=== PATIENT | male | born 1990 | race Caucasian/White ===

== ENCOUNTER 2023-05-12 10:55 | Inpatient (IN) ==
[2023-05-12] MEDS ORDERED: ONDANSETRON INJ 2 MG/ML 2 ML VIAL IV STA ×2 (11:42→11:43)
[2023-05-12] MEDS ORDERED: SODIUM CHLORIDE 0.9% 1000ML 2,000 ML IV ONE (11:43)
[2023-05-12] MEDS ORDERED: ONDANSETRON INJ 2 MG/ML 2 ML VIAL ONE (11:44)
[2023-05-12] MEDS ORDERED: SODIUM CHLORIDE 0.9% 1000ML 2,000 ML IV SCH (11:45)
--- NOTE | 2023-05-12 11:45 | Emergency Department Note ---
Impression & Plan DKA, type 1, Type 1 diabetes mellitus, Abdominal pain ED Provider Note NAME: ESTEPHANIA CURIEL AGE: 32 SEX: M : 1990 ARRIVES VIA: Walk-In INFORMANT: Patient ED PROVIDER(S): Raffaele Mack DO CHIEF COMPLAINT: N/V HPI: Patient is a 32-year-old male who is a type I diabetic who presents to the ER for nausea and vomiting which started this past Friday. Has been getting gradually worse. He notes that after vomiting he gets severe headaches and severe belly pain. He has only checked his sugar once since then and that was on Friday and it was about 300. He has been intermittently taking his insulin. Denies any dysuria, urgency, or frequency. No fevers. No other exacerbating or remitting factors. No neck stiffness. No trauma. PAST MEDICAL HISTORY:See Below PAST SURGICAL HISTORY:See Below FAMILY HISTORY:See Below SOCIAL HISTORY:See Below HOME MEDICATIONS:See Below ALLERGIES:See Below VITALS:See Below PHYSICAL EXAMINATION: GENERAL: Sitting up in bed, alert, well appearing, well nourished, no distress, non-toxic EYE EXAM: normal conjunctiva. OROPHARYNX: no exudate, no erythema, lips, buccal mucosa, and tongue normal and mucous membranes are moist NECK: supple, no nuchal rigidity, no adenopathy, non-tender LUNGS: Clear to auscultation. Normal chest wall mechanics HEART: no murmurs, S1 normal and S2 normal ABDOMEN: abdomen soft, non-tender, normo-active bowel sounds, no masses, no rebound or guarding. BACK: Back is symmetrical on inspection and there is no deformity, no midline tenderness, no CVA tenderness. SKIN: no rashes and no bruising UPPER EXTREMITIES: upper extremities are grossly normal. LOWER EXTREMITIES: No pitting edema. NEURO EXAM: Normal sensorium, cranial nerves II-XII intact, normal speech, no weakness of arms, no weakness of legs. No drift. Finger to nose intact. Gross sensation intact. MEDICAL DECISION MAKING: Patient is a 32-year-old type I diabetic presents ER for above-stated complaint. IV was established blood work was obtained. External records reviewed briefly from [employer]. Labs show no significant leukocytosis or anemia. VBG with a pH of 7.25. BMP with a gap and a CO2 of 14. Glucose was elevated at nearly 400. LFTs bilirubin and lipase was unremarkable. UA was clean. COVID-negative . CT head and abdomen pelvis was unremarkable. Patient was given 4 L of IV fluids as well as an insulin drip and bolus. Patient was discussed with the hospitalist admitted for further work-up. Triage Nursing notes reviewed. Limited review of prior medical records performed Vital Signs: reviewed and remarkable for no significant abnormalities Differential diagnosis: Differential diagnoses includes but is not limited to gastritis, peptic ulcer disease, GERD, gallbladder disease, pancreatitis, small bowel obstruction, appendicitis, diverticulitis, hernia, urinary tract infection, torsion, perforation, trauma, infectious. ER treatment provided: See below Diagnostics interpreted by me include EKG and cardiac monitoring as listed below: -Cardiac Monitoring: An order was placed for continuous cardiac monitoring. The monitor shows a rate of 115 with sinus rhythm. -ECG: none -Laboratory studies:Interpreted by me as stated above in MDM and shown below. Imaging studies: Xrays: As interpreted by me:none CTs show: CT of the head and abdomen pelvis showed no acute pathology per radiology CT of the head per my read showed no obvious large bleed Consultation(s): As described in MDM Procedures:none Critical Care: I have personally spent 32 minutes of critical care time in the direct management of this patient. This includes bedside care, interpretation of diagnostic studies, and testing, discussion with consultants, patient, and family members, and other required patient management activities. This 32 minutes is in excess of all separately billable procedures. Past Med/Surg History Medical History Dyslipidemia Subclinical hypothyroidism Type 1 diabetes mellitus Surgical History No pertinent past surgical history Family History Mother Diabetes Grandmother (Maternal) Diabetes Hypertension Grandfather (Maternal) Hypertension Social History (Updated 05/12/23 @ 14:46 by Sarai Cabezas PA-C) Smoking Status: Never smoker Hx Alcohol Use: Yes Alcohol type: beer Alcohol type Comment: weekends (10-12 beers), rare on weekdays Hx Substance Use: No Preferred Language: Pashto Dealership Manager Required: No Beliefs That Will Affect Care: None Current Living Situation: Alone current occupational status: employed current occupation: civil engineering technician Feels Safe at Home: Yes Safety Concerns: Feels Safe At This Time Assistive Devices: None Allergies Allergies Allergy/AdvReac Type Severity Reaction Status Date / Time Penicillins Allergy Mild RASH A Verified 05/12/23 14:50 CHILD. Home Meds Home Medications Medication Instructions Recorded Confirmed insulin glargine 100 unit/mL 30 unit subcut BID 04/22/20 05/12/23 subcutaneous solution (Lantus U-100 Insulin) levothyroxine 25 mcg tablet 25 mcg PO DAILY 04/22/20 05/12/23 insulin aspart U-100 100 unit/mL 0 sliding scale dose subcut TIDM 05/12/23 05/12/23 (3 mL) subcutaneous pen (Novolog FlexPen U-100 Insulin aspart) ondansetron HCl 4 mg tablet 4 mg PO Q8H PRN Nausea 05/12/23 05/12/23 sertraline 50 mg tablet 50 mg PO DAILY 05/12/23 05/12/23 tadalafil 5 mg tablet 5 mg PO DIRECTED PRN Erectile 05/12/23 05/12/23 Dysfunction Results & Data (ED) Vital Signs Vital Signs - 24 hr 05/12/23 11:07 05/12/23 12:09 05/12/23 12:17 Temperature 36.6 C Temperature Source Temporal Artery Scan Pulse Rate 110 H 108 H Pulse Rate [Radial] 112 H Pulse Rhythm [Radial] Regular Respiratory Rate 20 15 Respiratory Effort / Characteristics Non-Labored Respiratory Depth Normal Blood Pressure 139/86 Blood Pressure [Left Arm] 156/89 H Blood Pressure Mean 103 Blood Pressure Mean [Left Arm] 111 Pulse Oximetry 97 97 Oxygen Delivery Method Room Air Room Air Sepsis Recent Fever Within 48 Hours No Sepsis New/Unexplained Change in Mental Status N/A Sepsis Action Taken by Nursing No Action Required Laboratory Data 05/12/23 11:41 05/12/23 16:19 Lab Results 05/12/23 05/12/23 05/12/23 Range/Units 11:38 11:41 11:41 WBC 7.26 (4.8-10.8) K/ul RBC 5.07 (4.70-6.10) M/uL Hgb 15.5 (14.0-18.0) g/dl POC Hgb (14.0-18.0) g/dl Hct 45.2 (42.0-52.0) % POC Hct (42-52) % MCV 89.2 (80.0-100.0) fL MCH 30.6 (25.0-34.0) pg MCHC 34.3 (32.0-36.0) g/dL RDW Std Deviation 39.1 (36.4-46.3) fL RDW Coeff of Tawny 11.9 (11.5-14.5) % Plt Count 355 (130-400) K/uL MPV 10.6 (9.4-12.4) fL Immature Gran % (Auto) 0.3 % Neut % (Auto) 78.3 % Lymph % (Auto) 15.0 % Licking % (Auto) 5.4 % Eos % (Auto) 0.4 % Baso % (Auto) 0.6 % Neut # (Auto) 5.69 (1.40-6.50) K/uL Lymph # (Auto) 1.09 L (1.2-3.4) K/uL Licking # (Auto) 0.39 (0.11-0.59) K/uL Eos # (Auto) 0.03 (0-0.50) K/uL Baso # (Auto) 0.04 (0-0.2) K/uL Immature Gran # (Auto) 0.02 (0.01-0.20) K/uL VBG pH (7.36-7.41) VBG pCO2 (38-50) mmHg VBG pO2 mmHg VBG HCO3 mmol/L VBG O2 Saturation % VBG Base Excess mEq/L POC Sodium (135-144) mmol/L Sodium 131 L (136-145) mmol/L POC Potassium (3.3-5.0) mmol/L Potassium TNP POC Chloride (101-112) mmol/L Chloride 93 L (98-107) mmol/L Carbon Dioxide 14 L (21-32) mmol/L POC Total CO2 (24-31) mmol/L Anion Gap 24 H (3-11) POC Anion Gap (16-25) mmol/L POC BUN (7-18) mg/dl BUN 15 (6-23) mg/dl Creatinine 1.03 (0.6-1.4) mg/dl POC Creatinine (0.6-1.3) mg/dl Est Cr Clr Drug Dosing 131.1 ml/min Est GFR ( Amer) 112.5 ml/min Est GFR (Non-Af Amer) 97.0 ml/min BUN/Creatinine Ratio 14.6 (10-20) Glucose 379 H* (70-99(Fasting)) mg/dl POC Glucose 391 H* (70-99) mg/dl POC Glucose (other) (70-99) mg/dl Calcium 9.3 (8.6-10.3) mg/dl POC Ioniz Calcium Bruce (1.12-1.32) mmol/l Total Bilirubin 0.5 (0.2-1.0) mg/dl AST TNP ALT 26 (7-52) U/L Alkaline Phosphatase 60 (34-104) U/L Total Creatine Kinase (30-223) U/L Total Protein 8.0 (6.0-8.3) gm/dl Albumin 4.3 (3.4-5.0) gm/dl Globulin 3.7 (2.5-4.0) gm/dl Albumin/Globulin Ratio 1.2 (0.9-2) Lipase 19 (11-82) U/L 05/12/23 05/12/23 05/12/23 Range/Units 12:27 13:25 13:50 WBC (4.8-10.8) K/ul RBC (4.70-6.10) M/uL Hgb (14.0-18.0) g/dl POC Hgb 16.3 (14.0-18.0) g/dl Hct (42.0-52.0) % POC Hct 48 (42-52) % MCV (80.0-100.0) fL MCH (25.0-34.0) pg MCHC (32.0-36.0) g/dL RDW Std Deviation (36.4-46.3) fL RDW Coeff of Tawny (11.5-14.5) % Plt Count (130-400) K/uL MPV (9.4-12.4) fL Immature Gran % (Auto) % Neut % (Auto) % Lymph % (Auto) % Licking % (Auto) % Eos % (Auto) % Baso % (Auto) % Neut # (Auto) (1.40-6.50) K/uL Lymph # (Auto) (1.2-3.4) K/uL Licking # (Auto) (0.11-0.59) K/uL Eos # (Auto) (0-0.50) K/uL Baso # (Auto) (0-0.2) K/uL Immature Gran # (Auto) (0.01-0.20) K/uL VBG pH 7.25 L (7.36-7.41) VBG pCO2 34 L (38-50) mmHg VBG pO2 52 mmHg VBG HCO3 15 mmol/L VBG O2 Saturation 81.3 % VBG Base Excess -11.3 mEq/L POC Sodium 131 L (135-144) mmol/L Sodium (136-145) mmol/L POC Potassium 6.1 H* (3.3-5.0) mmol/L Potassium 4.6 POC Chloride 101 (101-112) mmol/L Chloride (98-107) mmol/L Carbon Dioxide (21-32) mmol/L POC Total CO2 14 L (24-31) mmol/L Anion Gap (3-11) POC Anion Gap 23.0 (16-25) mmol/L POC BUN 18 (7-18) mg/dl BUN (6-23) mg/dl Creatinine (0.6-1.4) mg/dl POC Creatinine 0.8 (0.6-1.3) mg/dl Est Cr Clr Drug Dosing ml/min Est GFR ( Amer) ml/min Est GFR (Non-Af Amer) ml/min BUN/Creatinine Ratio (10-20) Glucose (70-99(Fasting)) mg/dl POC Glucose (70-99) mg/dl POC Glucose (other) 342 H (70-99) mg/dl Calcium (8.6-10.3) mg/dl POC Ioniz Calcium Bruce 1.02 L (1.12-1.32) mmol/l Total Bilirubin (0.2-1.0) mg/dl AST ALT (7-52) U/L Alkaline Phosphatase (34-104) U/L Total Creatine Kinase 118 (30-223) U/L Total Protein (6.0-8.3) gm/dl Albumin (3.4-5.0) gm/dl Globulin (2.5-4.0) gm/dl Albumin/Globulin Ratio (0.9-2) Lipase (11-82) U/L 05/12/23 Range/Units 14:38 WBC (4.8-10.8) K/ul RBC (4.70-6.10) M/uL Hgb (14.0-18.0) g/dl POC Hgb (14.0-18.0) g/dl Hct (42.0-52.0) % POC Hct (42-52) % MCV (80.0-100.0) fL MCH (25.0-34.0) pg MCHC (32.0-36.0) g/dL RDW Std Deviation (36.4-46.3) fL RDW Coeff of Tawny (11.5-14.5) % Plt Count (130-400) K/uL MPV (9.4-12.4) fL Immature Gran % (Auto) % Neut % (Auto) % Lymph % (Auto) % [place] % (Auto) % Eos % (Auto) % Baso % (Auto) % Neut # (Auto) (1.40-6.50) K/uL Lymph # (Auto) (1.2-3.4) K/uL [place] # (Auto) (0.11-0.59) K/uL Eos # (Auto) (0-0.50) K/uL Baso # (Auto) (0-0.2) K/uL Immature Gran # (Auto) (0.01-0.20) K/uL VBG pH (7.36-7.41) VBG pCO2 (38-50) mmHg VBG pO2 mmHg VBG HCO3 mmol/L VBG O2 Saturation % VBG Base Excess mEq/L POC Sodium (135-144) mmol/L Sodium (136-145) mmol/L POC Potassium (3.3-5.0) mmol/L Potassium POC Chloride (101-112) mmol/L Chloride (98-107) mmol/L Carbon Dioxide (21-32) mmol/L POC Total CO2 (24-31) mmol/L Anion Gap (3-11) POC Anion Gap (16-25) mmol/L POC BUN (7-18) mg/dl BUN (6-23) mg/dl Creatinine (0.6-1.4) mg/dl POC Creatinine (0.6-1.3) mg/dl Est Cr Clr Drug Dosing ml/min Est GFR ( Amer) ml/min Est GFR (Non-Af Amer) ml/min BUN/Creatinine Ratio (10-20) Glucose (70-99(Fasting)) mg/dl POC Glucose 226 H (70-99) mg/dl POC Glucose (other) (70-99) mg/dl Calcium (8.6-10.3) mg/dl POC Ioniz Calcium Bruce (1.12-1.32) mmol/l Total Bilirubin (0.2-1.0) mg/dl AST ALT (7-52) U/L Alkaline Phosphatase (34-104) U/L Total Creatine Kinase (30-223) U/L Total Protein (6.0-8.3) gm/dl Albumin (3.4-5.0) gm/dl Globulin (2.5-4.0) gm/dl Albumin/Globulin Ratio (0.9-2) Lipase (11-82) U/L Administered Medications Insulin Human Regular 250 (units/ Sodium Chloride) 250 mls @ 10 mls/hr IV .Q24H ADELAIDA; Protocol Stop: 06/11/23 12:59 Last Titration: 05/12/23 17:04 Dose: 10 units/hr, 10 mls/hr Documented By: VANDANA Co-signed By: MARCOS Titration: 05/12/23 15:45 Dose: 10 units/hr, 10 mls/hr Documented By: MURTAZA Co-signed By: STEFANIE Titration: 05/12/23 14:50 Dose: 10 units/hr, 10 mls/hr Documented By: NORA Co-signed By: MURTAZA Admin: 05/12/23 13:34 Dose: 10 units/hr, 10 mls/hr Documented By: NORA Co-signed By: STEFANIE Parenteral Electrolytes (Plasma-Lyte A Ph 7.4) 1,000 mls @ 125 mls/hr IV .Q8H ADELAIDA Stop: 06/11/23 16:05 Last Admin: 05/12/23 16:42 Dose: 125 mls/hr Documented By: VANDANA Discontinued Medications Sodium Chloride (Nss 1000ml) 2,000 mls @ 999 mls/hr IV .Q2H1M ADELAIDA Stop: 05/12/23 13:45 Last Admin: 05/12/23 11:46 Dose: Not Given Documented By: VARUN Sodium Chloride (Nss 1000ml) 2,000 mls @ 999 mls/hr IV .Q2H1M ONE Stop: 05/12/23 13:43 Last Infusion: 05/12/23 13:47 Dose: 0 mls/hr Documented By: Admin: 05/12/23 11:46 Dose: 999 mls/hr Documented By: VARUN Parenteral Electrolytes (Plasma-Lyte A Ph 7.4) 2,000 mls @ 999 mls/hr IV .Q2H1M ONE Stop: 05/12/23 14:46 Last Infusion: 05/12/23 16:17 Dose: 0 mls/hr Documented By: Admin: 05/12/23 13:54 Dose: 999 mls/hr Documented By: NORA Insulin Human Regular (Novolin-R Bolus From Bag) 10 units IV ONE ONE Stop: 05/12/23 13:01 Last Admin: 05/12/23 13:40 Dose: 10 units Documented By: NORA Co-signed By: [facility] Ioversol (Optiray 320 125ml) 120 ml IV ONCE ONE Stop: 05/12/23 13:02 Last Admin: 05/12/23 13:02 Dose: 120 ml Documented By: PHILOMENA Ketorolac Tromethamine (Ketorolac Tromethamine 15 Mg/Ml Vial) 15 mg IV NOW ONE Stop: 05/12/23 12:47 Last Admin: 05/12/23 13:48 Dose: 15 mg Documented By: NORA Metoclopramide HCl (Metoclopramide Hcl Inj 5 Mg/Ml 2 Ml Vial) 10 mg IV NOW STA Stop: 05/12/23 12:47 Last Admin: 05/12/23 13:48 Dose: 10 mg Documented By: NORA Miscellaneous (Stat Insulin Drip) 1 each N/A NOW STA Stop: 05/12/23 12:47 Last Admin: 05/12/23 13:40 Dose: 1 each Documented By: NORA Ondansetron HCl (Ondansetron Inj 2 Mg/Ml 2 Ml Vial) 4 mg IV NOW STA Stop: 05/12/23 11:43 Last Admin: 05/12/23 11:46 Dose: 4 mg Documented By: VARUN Ondansetron HCl (Ondansetron Inj 2 Mg/Ml 2 Ml Vial) 4 mg IV NOW STA Stop: 05/12/23 11:44 Last Admin: 05/12/23 11:46 Dose: Not Given Documented By: VARUN Ondansetron HCl (Ondansetron Inj 2 Mg/Ml 2 Ml Vial) Confirm Administered Dose 4 mg .ROUTE .STK-MED ONE Stop: 05/12/23 11:45 Last Admin: 05/12/23 11:46 Dose: Not Given Documented By: VARUN Imaging Data Radiologist's Impression: Abdomen/Pelvis CT 05/12/23 11:[address] WITH IV CONTRAST CT DOSE: 1496.46 mGy.cm HISTORY: Generalized abdominal pain. TECHNIQUE: Multiaxial CT images of the abdomen and pelvis were performed following the use of intravenous contrast. A dose lowering technique was utiliz ed adhering to the principles of ALARA. COMPARISON STUDY: Abdomen and pelvis CT 04/15/2020. FINDINGS: The lung bases are clear. No pneumoperitoneum. No pneumatosis. No acute fractures identified. Mild gastric wall thickening. This is likely due to underdistention. The liver, gallbladder, spleen, adrenal glands, pancreas, and kidneys are unremarkable. No hydronephrosis. The main portal vein is patent. Normal caliber abdominal aorta. Subcentimeter retroperitoneal and mesenteric lymph nodes do not meet CT criteria for pathologic involvement. No pelvic lymphadenopathy or pelvic free fluid. The bladder is unremarkable. Moderate well-formed stool seen throughout the colon. No bowel wall thickening or obstruction. Normal appendix. IMPRESSION: 1. Mild gastric wall thickening. This is likely due to underdistention. A low- grade gastritis could also have a similar appearance in the appropriate clinical setting. 2. No evidence for a bowel obstruction. 3. Normal appendix. 4. No hydronephrosis. ACT 112: Negative or not required by law. Electronically signed by: Maurice Moreno M.D. 05/12/2023 1:[address] 05/12/23 11:43 CT SCAN OF THE BRAIN WITHOUT IV CONTRAST CLINICAL HISTORY: Headache. COMPARISON STUDY: No priors. TECHNIQUE: Unenhanced axial CT scan of the brain is performed from the vertex to the skull base. A dose lowering technique was utilized adhering to the principles of ALARA. CT DOSE: 547.75 mGy.cm FINDINGS: Brain parenchyma: The brain parenchyma is normal in appearance. There is no hemorrhage, mass effect, or evidence of acute territorial ischemia by CT criteria. Jay-white matter differentiation is preserved. No extra-axial fluid collection is seen. Ventricles, sulci, cisterns: Normal in configuration. Intracranial vasculature: The visualized intracranial vasculature at the skull base is normal in appearance. Calvarium: The calvarium appears intact. There is chronic appearing deformity of the nasal bones. Sinuses and mastoids: The visualized paranasal sinuses are clear. The mastoid air cells are well pneumatized. Orbits: The bony orbits are grossly intact. IMPRESSION: No acute intracranial abnormality. ACT 112: Negative or not required by law. Electronically signed by: Alexx Lopez M.D. 05/12/2023 1:24 PM Discharge Plan Visit Data Chief Complaint: Vomiting Stated Complaint: vomiting,severe headaches ED Provider: Raffaele Mack Discharge Problem: DKA, type 1, Type 1 diabetes mellitus, Abdominal pain Patient Disposition: Admitted As Inpatient Discharge Instructions Interventions: ED Discharge Assessment Last Done: 05/12/23 15:09
[2023-05-12 12:28] LABS: Appearance Urine Clear (Clear); Bilirubin Urine Negative (Negative); Blood Urine Negative (Negative); Color Urine Yellow; Glucose Urine UA 3+ (Negative); Ketones Urine 4+ (Negative); Leukocyte Esterase Urine Negative (Negative); Nitrite Urine Negative (Negative); Protein Urine Negative (Negative); Specific Gravity Urine 1.032 (1.000-1.030); Urobilinogen Urine Negative (Negative); pH Urine 5.5 (4.5-7.5)
[2023-05-12 12:42] LABS: Basophils # (auto) 0.04 K/uL (0-0.2); Basophils % (auto) 0.6 %; Eosinophils # (auto) 0.03 K/uL (0-0.50); Eosinophils % (auto) 0.4 %; Hematocrit (blood only) 45.2 % (42.0-52.0); Hemoglobin 15.5 g/dl (14.0-18.0); Immature Granulocytes # (auto) 0.02 K/uL (0.01-0.20); Immature Granulocytes % (auto) 0.3 %; Lymphocytes # (auto) 1.09 K/uL (1.2-3.4); Mean Corpuscular Hemoglobin 30.6 pg (25.0-34.0); Mean Corpuscular Hgb Conc 34.3 g/dL (32.0-36.0); Mean Corpuscular Volume 89.2 fL (80.0-100.0); Mean Platelet Volume 10.6 fL (9.4-12.4); Monocytes # (auto) 0.39 K/uL (0.11-0.59); Monocytes % (auto) 5.4 %; Neutrophils # (auto) 5.69 K/uL (1.40-6.50); Neutrophils % (auto) 78.3 %; Platelet Count 355 K/uL (130-400); RDW Coefficient of Variation 11.9 % (11.5-14.5); RDW Standard Deviation 39.1 fL (36.4-46.3); Red Blood Count 5.07 M/uL (4.70-6.10); White Blood Count 7.26 K/ul (4.8-10.8)
[2023-05-12 12:44] LABS: Alanine Aminotransferase 26 U/L (7-52); Albumin Globulin Ratio 1.2 (0.9-2); Albumin Level 4.3 gm/dl (3.4-5.0); Alkaline Phosphatase 60 U/L (34-104); Anion Gap 24 (3-11); BUN Creatinine Ratio 14.6 (10-20); Bilirubin,Total 0.5 mg/dl (0.2-1.0); Blood Urea Nitrogen 15 mg/dl (6-23); Calcium 9.3 mg/dl (8.6-10.3); Carbon Dioxide 14 mmol/L (21-32); Chloride 93 mmol/L (98-107); Creatinine Clr Calc Pharmacy 131.1 ml/min; Est GFR (African American) 112.5 ml/min; Globulin 3.7 gm/dl (2.5-4.0); Glucose 379 mg/dl (70-99(Fasting)); Lipase 19 U/L (11-82); Sodium 131 mmol/L (136-145)
[2023-05-12] MEDS ORDERED: CARBOHYDRATES FOR HYPOGLYCEMIA PO PRN (12:46)
[2023-05-12] MEDS ORDERED: DKA GOAL RANGE 150-250 mg/dl ONE (12:46)
[2023-05-12] MEDS ORDERED: DEXTROSE 50% 50 ML SYRINGE IV PRN (12:46)
[2023-05-12] MEDS ORDERED: GLUCAGON FOR INJ 1 MG VIAL SQ PRN (12:46)
[2023-05-12] MEDS ORDERED: STAT INSULIN DRIP STA (12:46)
[2023-05-12] MEDS ORDERED: PLASMA-LYTE A 2,000 ML IV ONE (12:46)
[2023-05-12] MEDS ORDERED: GLUCOSE 10 TAB/TUBE PO PRN (12:46)
[2023-05-12] MEDS ORDERED: KETOROLAC TROMETHAMINE 15 MG/ML VIAL IV ONE (12:46)
[2023-05-12] MEDS ORDERED: METOCLOPRAMIDE HCL INJ 5 MG/ML 2 ML VIAL IV STA (12:46)
[2023-05-12] MEDS ORDERED: GLUCOSE 40% GEL 15 GM TUBE PO PRN (12:46)
[2023-05-12 12:58] LABS: Base Excess VBG -11.3 mEq/L; HCO3 VBG 15 mmol/L; Oxygen Saturation VBG 81.3 %; PCO2 VBG 34 mmHg (38-50); PO2 VBG 52 mmHg; pH VBG 7.25 (7.36-7.41)
[2023-05-12] MEDS ORDERED: INSULIN REGULAR 250 UNITS in SODIUM CHLORIDE 0.9% 247.5 ML IV SCH (13:00)
[2023-05-12] MEDS ORDERED: NovoLIN-R BOLUS FROM BAG IV ONE (13:00)
[2023-05-12] MEDS ORDERED: OPTIRAY 320 125ml IV ONE (13:01)
--- NOTE | 2023-05-12 13:26 | CT Scan Report ---
ABDOMEN AND PELVIS CT WITH IV CONTRAST CT DOSE: 1496.46 mGy.cm HISTORY: Generalized abdominal pain. TECHNIQUE: Multiaxial CT images of the abdomen and pelvis were performed following the use of intrave nous contrast. A dose lowering technique was utilized adhering to the principles of ALARA. COMPARISON STUDY: Abdomen and pelvis CT 04/15/2020. FINDINGS: The lung bases are clear. No pneumoperitoneum. No pneumatosis. No acute fractures identifie d. Mild gastric wall thickening. This is likely due to underdistention. The liver, gallbladder, splee n, adrenal glands, pancreas, and kidneys are unremarkable. No hydronephrosis. The main portal vein is patent. Normal caliber abdominal aorta. Subcentimeter retroperitoneal and mesenteric lymph nodes do not meet CT criteria for pathologic involvement. No pelvic lymphadenopathy or pelvic free fluid. The bladder is unremarkable. Moderate well-formed stool seen throughout the colon. No bowel wall thickeni ng or obstruction. Normal appendix. IMPRESSION: 1. Mild gastric wall thickening. This is likely due to underdistention. A low-grade gastritis could a lso have a similar appearance in the appropriate clinical setting. 2. No evidence for a bowel obstruction. 3. Normal appendix. 4. No hydronephrosis. ACT 112: Negative or not required by law. Electronically signed by: Maurice Moreno M.D. 05/12/2023 1:25 PM
--- NOTE | 2023-05-12 13:26 | CT Scan Report ---
CT SCAN OF THE BRAIN WITHOUT IV CONTRAST CLINICAL HISTORY: Headache. COMPARISON STUDY: No priors. TECHNIQUE: Unenhanced axial CT scan of the brain is performed from the vertex to the skull base. A d ose lowering technique was utilized adhering to the principles of ALARA. CT DOSE: 547.75 mGy.cm FINDINGS: Brain parenchyma: The brain parenchyma is normal in appearance. There is no hemorrhage, mass effect, or evidence of acute territorial ischemia by CT criteria. Jay-white matter differentiation is preser gasper. No extra-axial fluid collection is seen. Ventricles, sulci, cisterns: Normal in configuration. Intracranial vasculature: The visualized intracranial vasculature at the skull base is normal in appe arance. Calvarium: The calvarium appears intact. There is chronic appearing deformity of the nasal bones. Sinuses and mastoids: The visualized paranasal sinuses are clear. The mastoid air cells are well pneu matized. Orbits: The bony orbits are grossly intact. IMPRESSION: No acute intracranial abnormality. ACT 112: Negative or not required by law. Electronically signed by: Alexx Lopez M.D. 05/12/2023 1:24 PM
[2023-05-12 13:39] LABS: iSTAT Creatinine 0.8 mg/dl (0.6-1.3); iSTAT Hemoglobin 16.3 g/dl (14.0-18.0); iSTAT Ionized Calcium 1.02 mmol/l (1.12-1.32); iSTAT Potassium 6.1 mmol/L (3.3-5.0)
--- NOTE | 2023-05-12 14:10 | History & Physical Report ---
Date of Service May 12, 2023 Assessment & Plan (1) DKA, type 1: Plan: This is a 32 y/o male with type 1 DM x 7 years, one prior episode of DKA associated with COVID, who presented to the ED today with five days of vomiting, abd pain, and VALLEJO. During work-up in the ED, sugars found to be near 400, pH on VBG acidotic, urine with 4+ ketones, potassium 6.1 consistent with diagnosis of DKA, likely induced by dehydration from recent work in the heat for prolonged pe riods +/- gastroenteritis. Pt started on insulin gtt in the ED, given Plasma- lyte x 2 liters. - Admit to PCU - Continue IVF with Plasma-lyte at 125 ml/hr for now, encourage oral intake as tolerated - Serial labs including BMP, VBG, and mag - will order Q4 hours initially but can decrease frequency once improving. Monitor electrolytes and replete prn - suspect potassium will drop as sugar improves - Anti-emetics for nausea - Insulin gtt until blood sugar stablized then convert to basal/bolus - pt will need to f/u with endocrinology as outpatient (2) Subclinical hypothyroidism: Plan: - Continue levothyroxine as taking previously Plan Pt seen and reviewed with Dr. Rojo. Plan of care discussed and as outlined above Code Status: Full code DVT prophylaxis: Rd Cabezas PA-C History of Present Illness Chief Complaint: vomiting, VALLEJO, abd pain Primary Care Provider: NO PCP This is a 32 y/o male with a history of type 1 DM which was diagnosed at age 25, subclinical hypothyroidism, and anxiety who presents to the ED today with five days of vomiting, abdominal discomfort, and VALLEJO that worsened today. Pt started with vomiting last , seen in urgent care on and diagnosed with probable gastroenteritis. Given Zofran but this has not helping. He has continued to vomit about twice a day since then but today reports at least four episodes of non-bloody emesis. He has associated upper abdominal discomfort, bloating, and nausea - these symptoms get worse right before he vomits, transient relief after. He denies fevers or chills but does get diaphoretic with vomiting episodes. His baseline bowel pattern tends towards constipation - last BM was two days ago, no recent diarrhea or bloody stools. He has noted increased urinary frequency but no change in color, hematuria or dysuria. The headache is in the bilateral frontotemporal region. He denies sinus congestion, ST, nasal congestion, runny nose, or cough. 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 He does try to keep hydrated with water and electrolyte drinks but admits this can be a struggle when the weather is as hot as it has been recently. Pt has one prior episode of DKA, which was triggered by COVID, and resulted in a three day hospitalization at [facility]. His diabetes is poorly controlled at present. He previously used a CGM but reports the unit is not compatible with his new phone so he has not been using, has not been checking his blood sugars very often. When he was using the CGM, he reports his sugars ran between 100 and 200 most of the time. He has not checked his sugars since last week but on last check they were around 200. No sick contacts. He does note starting testosterone injections about a month ago for weightlifting - unsure if this would be contributing to his symptoms. Allergies Allergy/AdvReac Type Severity Reaction Status Date / Time Penicillins Allergy Mild RASH A Verified 05/12/23 14:50 CHILD. Home Medications Medication Instructions Recorded Confirmed Type insulin glargine 100 unit/mL 30 unit subcut BID 04/22/20 05/12/23 History subcutaneous solution (Lantus U-100 Insulin) levothyroxine 25 mcg tablet 25 mcg PO DAILY 04/22/20 05/12/23 History insulin aspart U-100 100 unit/mL 0 sliding scale dose subcut TIDM 05/12/23 05/12/23 History (3 mL) subcutaneous pen (Novolog FlexPen U-100 Insulin aspart) ondansetron HCl 4 mg tablet 4 mg PO Q8H PRN Nausea 05/12/23 05/12/23 History sertraline 50 mg tablet 50 mg PO DAILY 05/12/23 05/12/23 History tadalafil 5 mg tablet 5 mg PO DIRECTED PRN Erectile 05/12/23 05/12/23 History Dysfunction Past Med/Surg History Medical History Dyslipidemia Subclinical hypothyroidism Type 1 diabetes mellitus Surgical History No pertinent past surgical history Family History Mother Diabetes Grandmother (Maternal) Diabetes Hypertension Grandfather (Maternal) Hypertension Social History (Updated 05/12/23 @ 14:46 by Sarai Cabezas PA-C) Smoking Status: Never smoker Hx Alcohol Use: Yes Alcohol type: beer Alcohol type Comment: weekends (10-12 beers), rare on weekdays Hx Substance Use: No Preferred Language: [place] Citizen 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 Beliefs That Will Affect Care: None Current Living Situation: Alone current occupational status: employed current occupation: [employer] Feels Safe at Home: Yes Safety Concerns: Feels Safe At This Time Assistive Devices: None Review of Systems Review of Systems: All systems reviewed & are unremarkable except as noted in HPI & below Constitutional: + fatigue; no fever, no chills and no weight loss Eyes: no diplopia and no worsening vision Ear, Nose, Mouth, Throat: no nasal congestion, no nasal discharge, no post nasal drip, no sore throat and no dysphagia Respiratory: no cough, no dyspnea and no wheezing Cardiovascular: + palpitations (just before vomiting); no chest pain, no lightheadedness, no syncope and no edema Gastrointestinal: as per Subjective / HPI Genitourinary: no dysuria or no hematuria Musculoskeletal: no joint pain Integumentary: no rash and no yellowing of the skin Neurologic: + headache(s); no generalized weakness, no tingling, no paresthesia and no syncope Endocrine: + polydipsia; no polyphagia Physical Exam Constitutional: well developed and well nourished; no acute distress Eyes: + anicteric sclerae ENMT: external ear and nose normal, oropharynx normal Neck: trachea midline Respiratory: no respiratory distress and no labored breathing Auscultation: lungs clear to auscultation bilaterally; no rales, no rhonchi and no wheezes Cardiovascular: Rate/Rhythm: regular rhythm and + tachycardic Vessels: dorsalis pedis pulses present and radial pulses present Extremities: no pedal edema Gastrointestinal (Abdomen): Inspection/Auscultation: normal bowel sounds; abdomen not distended Percussion/Palpation: abdomen soft and + tympanic to percussion; abdomen nontender Musculoskeletal: Head/Neck/Chest: normocephalic, head atraumatic and neck supple Skin: no jaundice Neurologic: moves all extremities; no focal motor deficits and not confused Psychiatric: A+Ox3, euthymic affect Results & Data Results & Data Vital Signs (Past 12 Hours) Vital Signs Temp Pulse Pulse Resp BP BP Pulse Ox 05/12/23 12:17 108 H 05/12/23 12:09 112 H 15 156/89 H 97 05/12/23 11:07 36.6 C 110 H 20 139/86 97 O2 Del Method 05/12/23 12:17 05/12/23 12:09 Room Air 05/12/23 11:07 Room Air Laboratory Results Laboratory Results - last 24 hr 05/12/23 05/12/23 05/12/23 11:38 11:41 11:41 WBC 7.26 RBC 5.07 Hgb 15.5 POC Hgb Hct 45.2 POC Hct MCV 89.2 MCH 30.6 MCHC 34.3 RDW Std Deviation 39.1 RDW Coeff of Tawny 11.9 Plt Count 355 MPV 10.6 Immature Gran % (Auto) 0.3 Neut % (Auto) 78.3 Lymph % (Auto) 15.0 Barber % (Auto) 5.4 Eos % (Auto) 0.4 Baso % (Auto) 0.6 Neut # (Auto) 5.69 Lymph # (Auto) 1.09 L Barber # (Auto) 0.39 Eos # (Auto) 0.03 Baso # (Auto) 0.04 Immature Gran # (Auto) 0.02 VBG pH VBG pCO2 VBG pO2 VBG HCO3 VBG O2 Saturation VBG Base Excess POC Sodium Sodium 131 L POC Potassium Potassium TNP POC Chloride Chloride 93 L Carbon Dioxide 14 L POC Total CO2 Anion Gap 24 H POC Anion Gap POC BUN BUN 15 Creatinine 1.03 POC Creatinine Est Cr Clr Drug Dosing 131.1 Est GFR ( Amer) 112.5 Est GFR (Non-Af Amer) 97.0 BUN/Creatinine Ratio 14.6 Glucose 379 H* POC Glucose 391 H* POC Glucose (other) Calcium 9.3 POC Ioniz Calcium Bruce Total Bilirubin 0.5 AST TNP ALT 26 Alkaline Phosphatase 60 Total Protein 8.0 Albumin 4.3 Globulin 3.7 Albumin/Globulin Ratio 1.2 Lipase 19 Urine Color Urine Appearance Urine pH Ur Specific [place] Urine Protein Urine Glucose (UA) Urine Ketones Urine Blood Urine Nitrite Urine Bilirubin Urine Urobilinogen Ur Leukocyte Esterase 05/12/23 05/12/23 05/12/23 12:27 13:25 13:50 WBC RBC Hgb POC Hgb 16.3 Hct POC Hct 48 MCV MCH MCHC RDW Std Deviation RDW Coeff of Tawny Plt Count MPV Immature Gran % (Auto) Neut % (Auto) Lymph % (Auto) Barber % (Auto) Eos % (Auto) Baso % (Auto) Neut # (Auto) Lymph # (Auto) Barber # (Auto) Eos # (Auto) Baso # (Auto) Immature Gran # (Auto) VBG pH 7.25 L VBG pCO2 34 L VBG pO2 52 VBG HCO3 15 VBG O2 Saturation 81.3 VBG Base Excess -11.3 POC Sodium 131 L Sodium POC Potassium 6.1 H* Potassium Pending POC Chloride 101 Chloride Carbon Dioxide POC Total CO2 14 L Anion Gap POC Anion Gap 23.0 POC BUN 18 BUN Creatinine POC Creatinine 0.8 Est Cr Clr Drug Dosing Est GFR ( Amer) Est GFR (Non-Af Amer) BUN/Creatinine Ratio Glucose POC Glucose POC Glucose (other) 342 H Calcium POC Ioniz Calcium Bruce 1.02 L Total Bilirubin AST ALT Alkaline Phosphatase Total Protein Albumin Globulin Albumin/Globulin Ratio Lipase Urine Color Urine Appearance Urine pH Ur Specific [place] Urine Protein Urine Glucose (UA) Urine Ketones Urine Blood Urine Nitrite Urine Bilirubin Urine Urobilinogen Ur Leukocyte Esterase 05/12/23 Unknown WBC RBC Hgb POC Hgb Hct POC Hct MCV MCH MCHC RDW Std Deviation RDW Coeff of Tawny Plt Count MPV Immature Gran % (Auto) Neut % (Auto) Lymph % (Auto) Barber % (Auto) Eos % (Auto) Baso % (Auto) Neut # (Auto) Lymph # (Auto) Barber # (Auto) Eos # (Auto) Baso # (Auto) Immature Gran # (Auto) VBG pH VBG pCO2 VBG pO2 VBG HCO3 VBG O2 Saturation VBG Base Excess POC Sodium Sodium POC Potassium Potassium POC Chloride Chloride Carbon Dioxide POC Total CO2 Anion Gap POC Anion Gap POC BUN BUN Creatinine POC Creatinine Est Cr Clr Drug Dosing Est GFR ( Amer) Est GFR (Non-Af Amer) BUN/Creatinine Ratio Glucose POC Glucose POC Glucose (other) Calcium POC Ioniz Calcium Bruce Total Bilirubin AST ALT Alkaline Phosphatase Total Protein Albumin Globulin Albumin/Globulin Ratio Lipase Urine Color Yellow Urine Appearance Clear Urine pH 5.5 Ur Specific [place] 1.032 H Urine Protein Negative Urine Glucose (UA) 3+ H Urine Ketones 4+ H Urine Blood Negative Urine Nitrite Negative Urine Bilirubin Negative Urine Urobilinogen Negative Ur Leukocyte Esterase Negative Diagnostic Findings Abdomen/Pelvis CT 05/12/23 11:[address] WITH IV CONTRAST CT DOSE: 1496.46 mGy.cm HISTORY: Generalized abdominal pain. TECHNIQUE: Multiaxial CT images of the abdomen and pelvis were performed following the use of intravenous contrast. A dose lowering technique was utilized adhering to the principles of ALARA. COMPARISON STUDY: Abdomen and pelvis CT 04/15/2020. FINDINGS: The lung bases are clear. No pneumoperitoneum. No pneumatosis. No acute fractures identified. Mild gastric wall thickening. This is likely due to underdistention. The liver, gallbladder, spleen, adrenal glands, pancreas, and kidneys are unremarkable. No hydronephrosis. The main portal vein is patent. Normal caliber abdominal aorta. Subcentimeter retroperitoneal and mesenteric lymph nodes do not meet CT criteria for pathologic involvement. No pelvic lymphadenopathy or pelvic free fluid. The bladder is unremarkable. Moderate well-formed stool seen throughout the colon. No bowel wall thickening or obstruction. Normal appendix. IMPRESSION: 1. Mild gastric wall thickening. This is likely due to underdistention. A low- grade gastritis could also have a similar appearance in the appropriate clinical setting. 2. No evidence for a bowel obstruction. 3. Normal appendix. 4. No hydronephrosis. Head CT 05/12/23 11:43 CT SCAN OF THE BRAIN WITHOUT IV CONTRAST CLINICAL HISTORY: Headache. COMPARISON STUDY: No priors. TECHNIQUE: Unenhanced axial CT scan of the brain is performed from the vertex to the skull base. A dose lowering technique was utilized adhering to the principles of ALARA. CT DOSE: 547.75 mGy.cm FINDINGS: Brain parenchyma: The brain parenchyma is normal in appearance. There is no hemorrhage, mass effect, or evidence of acute territorial ischemia by CT criteria. Jay-white matter differentiation is preserved. No extra-axial fluid collection is seen. Ventricles, sulci, cisterns: Normal in configuration. Intracranial vasculature: The visualized intracranial vasculature at the skull base is normal in appearance. Calvarium: The calvarium appears intact. There is chronic appearing deformity of the nasal bones. Sinuses and mastoids: The visualized paranasal sinuses are clear. The mastoid air cells are well pneumatized. Orbits: The bony orbits are grossly intact. IMPRESSION: No acute intracranial abnormality. Medications Administered Insulin Human Regular 250 (units/ Sodium Chloride) 250 mls @ 10 mls/hr IV .Q24H ADELAIDA; Protocol Stop: 06/11/23 12:59 Last Admin: 05/12/23 13:34 Dose: 10 units/hr, 10 mls/hr Documented By: NORA Co-signed By: STEFANIE Parenteral Electrolytes (Plasma-Lyte A Ph 7.4) 2,000 mls @ 999 mls/hr IV .Q2H1M ONE Stop: 05/12/23 14:46 Last Admin: 05/12/23 13:54 Dose: 999 mls/hr Documented By: NORA Discontinued Medications Sodium Chloride (Nss 1000ml) 2,000 mls @ 999 mls/hr IV .Q2H1M ADELAIDA Stop: 05/12/23 13:45 Last Admin: 05/12/23 11:46 Dose: Not Given Documented By: VARUN Sodium Chloride (Nss 1000ml) 2,000 mls @ 999 mls/hr IV .Q2H1M ONE Stop: 05/12/23 13:43 Last Admin: 05/12/23 11:46 Dose: 999 mls/hr Documented By: VARUN Insulin Human Regular (Novolin-R Bolus From Bag) 10 units IV ONE ONE Stop: 05/12/23 13:01 Last Admin: 05/12/23 13:40 Dose: 10 units Documented By: NORA Co-signed By: GALDINO Ioversol (Optiray 320 125ml) 120 ml IV ONCE ONE Stop: 05/12/23 13:02 Last Admin: 05/12/23 13:02 Dose: 120 ml Documented By: PHILOMENA Ketorolac Tromethamine (Ketorolac Tromethamine 15 Mg/Ml Vial) 15 mg IV NOW ONE Stop: 05/12/23 12:47 Last Admin: 05/12/23 13:48 Dose: 15 mg Documented By: NORA Metoclopramide HCl (Metoclopramide Hcl Inj 5 Mg/Ml 2 Ml Vial) 10 mg IV NOW STA Stop: 05/12/23 12:47 Last Admin: 05/12/23 13:48 Dose: 10 mg Documented By: NORA Miscellaneous (Stat Insulin Drip) 1 each N/A NOW STA Stop: 05/12/23 12:47 Last Admin: 05/12/23 13:40 Dose: 1 each Documented By: NORA Ondansetron HCl (Ondansetron Inj 2 Mg/Ml 2 Ml Vial) 4 mg IV NOW STA Stop: 05/12/23 11:43 Last Admin: 05/12/23 11:46 Dose: 4 mg Documented By: VARUN Ondansetron HCl (Ondansetron Inj 2 Mg/Ml 2 Ml Vial) 4 mg IV NOW STA Stop: 05/12/23 11:44 Last Admin: 05/12/23 11:46 Dose: Not Given Documented By: VARUN Ondansetron HCl (Ondansetron Inj 2 Mg/Ml 2 Ml Vial) Confirm Administered Dose 4 mg .ROUTE .STK-MED ONE Stop: 05/12/23 11:45 Last Admin: 05/12/23 11:46 Dose: Not Given Documented By: VARUN Supervising Physician Co-Signing Physician Notes I have reviewed information Patient has evidence of metabolic acidosis with compensatory respiratory alkalosis ( gapped acidosis) Diabetic Ketoacidosis. will continue iv fluids will continue insulin drip for now supportive management at this time.
[2023-05-12 14:26] LABS: Potassium 4.6 mmol/L (3.5-5.1)
[2023-05-12] MEDS ORDERED: PHARMACY GLYCEMIC MGMT CONSULT PRN (16:06)
[2023-05-12] MEDS ORDERED: ONDANSETRON INJ 2 MG/ML 2 ML VIAL IV PRN (16:06)
[2023-05-12] MEDS ORDERED: PROMETHAZINE HCL 12.5 MG in SODIUM CHLORIDE 0.9% 50 ML IV PRN (16:06)
[2023-05-12] MEDS ORDERED: ACETAMINOPHEN 325 MG TAB PO PRN (16:06)
[2023-05-12] MEDS: PLASMA-LYTE A 1,000 ML IV SCH (16:42)
[2023-05-12 17:04] LABS: BUN Creatinine Ratio 15.1 (10-20); Creatinine Clr Calc Pharmacy 144.8 ml/min; Est GFR (African American) 127.2 ml/min; Est GFR (Non-African American) 109.8 ml/min; Potassium 4.6 mmol/L (3.5-5.1)
[2023-05-12 17:07] LABS: Magnesium 2.3 mg/dl (1.7-2.4); Phosphorus 1.5 mg/dl (2.5-4.9)
[2023-05-12] MEDS ORDERED: POTASSIUM PHOS 3 MMOL/1 ML INFUSION IV STA (17:24)
[2023-05-12] MEDS: INSULIN ASPART PER UNIT CHARGE SC SCH (17:38)
[2023-05-12] MEDS ORDERED: POTASSIUM PHOSPHATE 30 MMOL in SODIUM CHLORIDE 0.9% 500 ML IV ONE (18:00)
[2023-05-12 20:36] LABS: BUN Creatinine Ratio 14.1 (10-20); Calcium 7.8 mg/dl (8.6-10.3); Creatinine Clr Calc Pharmacy 146.4 ml/min; Est GFR (African American) 128.9 ml/min; Est GFR (Non-African American) 111.2 ml/min; Potassium 3.8 mmol/L (3.5-5.1)
[2023-05-12 20:44] LABS: Magnesium 2.3 mg/dl (1.7-2.4); Phosphorus 1.4 mg/dl (2.5-4.9)
[2023-05-12] MEDS: POT PHOSPHATE MONOBASIC W/ SOD TAB PO SCH (21:00)
[2023-05-12] MEDS ORDERED: LANTUS PER UNIT CHARGE SC ONE ×2 (23:00)
[2023-05-13] MEDS: PLASMA-LYTE A 1,000 ML IV SCH (00:43)
[2023-05-13] MEDS: INSULIN ASPART PER UNIT CHARGE SC SCH ×5 (00:47→11:58)
[2023-05-13 01:23] LABS: Calcium 7.3 mg/dl (8.6-10.3); Creatinine Clr Calc Pharmacy 166.2 ml/min; Est GFR (African American) 138.2 ml/min; Est GFR (Non-African American) 119.3 ml/min; Magnesium 2.2 mg/dl (1.7-2.4); Phosphorus 3.4 mg/dl (2.5-4.9); Potassium 3.9 mmol/L (3.5-5.1)
[2023-05-13 04:59] LABS: Calcium 7.5 mg/dl (8.6-10.3); Est GFR (African American) 116.5 ml/min; Est GFR (Non-African American) 100.6 ml/min; Magnesium 2.1 mg/dl (1.7-2.4); Phosphorus 2.5 mg/dl (2.5-4.9); Potassium 3.8 mmol/L (3.5-5.1)
[2023-05-13] MEDS ORDERED: LACTATED RINGER'S 1,000 ML IV ONE (06:15)
[2023-05-13] MEDS ORDERED: LEVOTHYROXINE SODIUM 25 MCG TABLET PO SCH (06:30)
[2023-05-13 06:51] LABS: Albumin Level 3.4 gm/dl (3.4-5.0)
[2023-05-13 07:18] LABS: Estimated Average Glucose 226 mg/dl; Hemoglobin A1C 9.5 % (4.5-5.6)
[2023-05-13] MEDS: POT PHOSPHATE MONOBASIC W/ SOD TAB PO SCH (08:02)
--- NOTE | 2023-05-13 08:43 | Pharmacy Report ---
Pharmacy Glycemic Short Note 2 - Date of Service May 13, 2023 - Glycemic Short BSG Results (Last 24 hours): 05/12/23 05/12/23 05/12/23 11:38 11:41 13:25 Glucose 379 H* POC Glucose 391 H* POC Glucose (other) 342 H 05/12/23 05/12/23 05/12/23 14:38 15:42 16:19 Glucose 196 H POC Glucose 226 H 202 H POC Glucose (other) 05/12/23 05/12/23 05/12/23 17:04 19:01 20:06 Glucose 155 H POC Glucose 178 H 187 H POC Glucose (other) 05/12/23 05/12/23 05/12/23 20:58 21:20 21:41 Glucose POC Glucose 111 H 91 138 H POC Glucose (other) 05/12/23 05/12/23 05/12/23 21:55 22:10 22:25 Glucose POC Glucose 133 H 133 H 132 H POC Glucose (other) 05/12/23 05/12/23 05/13/23 22:40 23:46 00:38 Glucose 148 H POC Glucose 133 H 142 H POC Glucose (other) 05/13/23 05/13/23 05/13/23 00:42 01:44 04:27 Glucose 131 H POC Glucose 131 H 125 H POC Glucose (other) 05/13/23 05/13/23 04:27 07:00 Glucose POC Glucose 112 H 106 H POC Glucose (other) OUTPATIENT ANTIDIABETIC REGIMEN: * Lantus 25 units SC BID * Novolog SSI TIDM HbA1c: 9.5% (05/13/23) ASSESSMENT: * AA is a 32 year old male w/ T1DM who presented to ED on 05/12 w/ 5 day history of vomiting, abdominal discomfort, and headache. * Pertinent lab work on presentation was BSG of 391 mg/dL, serum bicarbonate 14 mmol/L, and anion gap 24. pH on VBG of 7.25. * DKA treated with IV fluids and IV insulin infusion - anion gap closed to 12 this morning w/ normal serum bicarb * Lantus 25 units x 1 given late last evening - fasting BSG of 106 mg/dL this morning * Will hold off on further basal until lunchtime * [facility] that [facility] has missed recent follow-up appointments/phone call attempts with [facility] * Patient to be discharged this afternoon PLAN FOR INPATIENT GLYCEMIC CONTROL: * Basal insulin * Lantus 20 units SC x 1 with lunch * Patient to be discharged this afternoon * Bolus insulin * NovoLog per scale ACHS or Q6hrs while NPO * Goal Range: Low 110 mg/dL - High 140 mg/dL * Correction Factor: 25 mg/dL/unit * Nutritional / Prandial insulin per carb ratio of 1 unit per 8 grams CHO consumed
[2023-05-13] MEDS ORDERED: ENOXAPARIN INJ 40 MG/0.4 ML SYR SQ SCH (09:00)
[2023-05-13] MEDS ORDERED: SERTRALINE HCL 50 MG TABLET PO SCH (09:00)
[2023-05-13] MEDS ORDERED: LANTUS PER UNIT CHARGE SC ONE (11:15)
--- NOTE | 2023-05-13 13:43 | Discharge Summary ---
Date of Service May 13, 2023 Admission HPI Per Admitting Provider This is a 32 y/o male with a history of type 1 DM which was diagnosed at age 25, subclinical hypothyroidism, and anxiety who presents to the ED today with five days of vomiting, abdominal discomfort, and VALLEJO that worsened today. Pt started with vomiting last , seen in urgent care on and diagnosed with probable gastroenteritis. Given Zofran but this has not helping. He has continued to vomit about twice a day since then but today reports at least four episodes of non-bloody emesis. He has associated upper abdominal discomfort, bloating, and nausea - these symptoms get worse right before he vomits, transient relief after. He denies fevers or chills but does get diaphoretic with vomiting episodes. His baseline bowel pattern tends towards constipation - last BM was two days ago, no recent diarrhea or bloody stools. He has noted increased urinary frequency but no change in color, hematuria or dysuria. The headache is in the bilateral frontotemporal region. He denies sinus congestion, ST, nasal congestion, runny nose, or cough. 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 He does try to keep hydrated with water and electrolyte drinks but admits this can be a struggle when the weather is as hot as it has been recently. Pt has one prior episode of DKA, which was triggered by COVID, and resulted in a three day hospitalization at [facility]. His diabetes is poorly controlled at present. He previously used a CGM but reports the unit is not compatible with his new phone so he has not been using, has not been checking his blood sugars very often. When he was using the CGM, he reports his sugars ran between 100 and 200 most of the time. He has not checked his sugars since last week but on last check they were around 200. No sick contacts. He does note starting testosterone injections about a month ago for weightlifting - unsure if this would be contributing to his symptoms. Admission Exam Per Admitting Provider Constitutional: well developed and well nourished; no acute distress Eyes: + anicteric sclerae ENMT: external ear and nose normal, oropharynx normal Neck: trachea midline Respiratory: no respiratory distress and no labored breathing Auscultation: lungs clear to auscultation bilaterally; no rales, no rhonchi and no wheezes Cardiovascular: Rate/Rhythm: regular rhythm and + tachycardic Vessels: dorsalis pedis pulses present and radial pulses present Extremities: no pedal edema Gastrointestinal (Abdomen): Inspection/Auscultation: normal bowel sounds; abdomen not distended Percussion/Palpation: abdomen soft and + tympanic to percussion; abdomen nontender Musculoskeletal: Head/Neck/Chest: normocephalic, head atraumatic and neck supple Skin: no jaundice Neurologic: moves all extremities; no focal motor deficits and not confused Psychiatric: A+Ox3, euthymic affect Principal Diagnosis DKA Uncontrolled type 1 diabetes mellitus Discharge Exam GENERAL: Alert and oriented x3. NAD, on RA. HEENT: No pallor, no icterus. Pupils equal, round and reactive to light. Oral mucosa moist. NECK: No JVD, no neck masses. HEART: S1 and S2 heard. Regular rate and rhythm. No murmur, no gallop. RESPIRATORY SYSTEM: Normal AP diameter. No accessory muscle use. No wheezing, no crackles. ABDOMEN: Soft, bowel sounds present, nontender, no distention. CENTRAL NERVOUS SYSTEM: No facial droop. Speech is clear. Obeys simple commands. Moves extremities. EXTREMITIES: No edema, no erythema seen. Discharge Data Allergies Allergy/AdvReac Type Severity Reaction Status Date / Time Penicillins Allergy Mild RASH A Verified 05/12/23 14:50 CHILD. Consultations 05/12/23 13:35 ED Decision to Admit Stat Ordered Studies 05/12/23 11:43 CT Abd and Pelvis [CT abd pelvis IV con only] Stat CT head/brain wo con Stat Hospital Course (1) DKA, type 1: Plan Patient was seen and examined at bedside as a follow-up of DKA and uncontrolled type 1 diabetes mellitus. Patient came in with nausea/vomiting/epigastric pain for few days prior to arrival and was found to be in DKA. Status post insulin gtt. in the ED and IV fluids. Today he reports no nausea/vomiting, no abdominal pain. He is tolerating diet. The DKA could have been precipitated by dehydration from recent work in the heat for prolonged period +- gastroenteritis in the background that he is not very much compliant recently with his sliding scale insulin. Patient counseled in detail regarding lifestyle modification and need for compliance with fingerstick glucose monitoring and sliding scale along with his long-acting insulin for long-term health management, he voiced understanding. He will benefit from setting up with diabetic clinic as an outpatient. Appreciate estate and trust tax principal's input. He is being discharged to home with following instruction at the point of discharge: Follow-up with the primary care physician within 1 week time and likely you will need labs CBC/CMP/magnesium/phosphorus. Recommend establish with diabetic clinic for long-term management of your diabetes. Follow-up with your supervisor wood crew in a month time. Maintain your current dose of Lantus. Monitor your fingerstick glucose with meals and at bedtime regularly and use a sliding scale based on the results as has been instructed to you. Use correction factor of 30 mg/dL/unit [for BSG greater than 150] and carbohydrate ratio of 10g/unit for your sliding scale with NovoLog. As discussed at the bedside, incorporate lifestyle modification in the form of healthy diet/regular exercise regimen/compliance with insulin and fingerstick checks. You will need A1c in 3 months time upon discharge. Take your medications as prescribed. Home Health Attestation I certify that this patient is under my care and that I, or a physicians reproductive healthcare assistant working with me, had a face to-face encounter that meets the home health [id number] encounter requirements with this patient. The encounter with the patient was in whole, or in part, for the following medical condition, which is the primary reason for home health care (list medical condition): I certify that, based on my findings, the following services are medically necessary home health services: My clinical findings support the need for the above services because: Further, I certify that my clinical findings support that this patient is homebound (i.e. absences from home require considerable and taxing effort and are for medical reasons or cheondoism services or infrequently or of short duration when for other reasons) because: Certification for Home Health Services: Based on the above findings, I certify that this patient is confined to the home and needs intermittent long term care, physical therapy and/or speech therapy or continues to need occupational therapy. The patient is under my care, and I have initiated the establishment of the plan of care. This patient will be followed by a physician who will periodically review the plan of care. Total Time Total Time Spent Total Time Spent (In Minutes): 50 Discharge Plan Discharge Items Patient Disposition: Home - Self-Care Reason For Visit: DKA Discharge Diagnosis: DKA Uncontrolled type 1 diabetes mellitus Activity: Resume your previous activity Non-emergency contact: Primary Care Provider Call non-emergency contact if: you have any medication questions Follow-up/Referrals: Ayan Le PA-C [Physician Facility Mechanic] - 08/05/23 3:15 pm PCP,NO [Primary Care Provider] - Diet: Carb Count or DM1 Addtl Attending Provider Instructions: Follow-up with the primary care physician within 1 week time and likely you will need labs CBC/CMP/magnesium/phosphorus. Recommend establish with diabetic clinic for long-term management of your diabetes. Follow-up with your supervisor wood crew in a month time. Maintain your current dose of Lantus. Monitor your fingerstick glucose with meals and at bedtime regularly and use a sliding scale based on the results as has been instructed to you. Use correction factor of 30 mg/dL/unit [for BSG greater than 150] and carbohydrate ratio of 10g/unit for your sliding scale with NovoLog. As discussed at the bedside, incorporate lifestyle modification in the form of healthy diet/regular exercise regimen/compliance with insulin and fingerstick checks. You will need A1c in 3 months time upon discharge. Take your medications as prescribed. Pending Studies at Discharge: No Stand-Alone Forms: [employer], Work/School Release, Smoking Cessation Medications and DC Order Prescriptions: New (DME) Ketone Urine Test Strip See Rx Instructions .Route Qty: 100 0RF Rx Instructions: once a day before bed Continued insulin glargine [Lantus U-100 Insulin] 100 unit/mL Solution 30 unit SUBCUT BID levothyroxine 25 mcg Tablet 25 mcg PO DAILY ondansetron HCl 4 mg tablet 4 mg PO Q8H PRN (Reason: Nausea) sertraline 50 mg tablet 50 mg PO DAILY insulin aspart U-100 [Novolog FlexPen U-100 Insulin] 100 unit/mL (3 mL) insulin pen 0 sliding scale dose SUBCUT TIDM tadalafil 5 mg tablet 5 mg PO DIRECTED PRN (Reason: Erectile Dysfunction) Discharge Orders: Discharge Order (Routine); Ordered 05/13/23 Ordered By: Fady Manzo Admission Data Admit Date/Time: 05/12/23 15:06 Attending Provider: Fady Manzo Admit Provider: Yuniel Rojo Primary Care Provider: PCP,NO Other Providers: Yuniel Rojo
== END 2023-05-13 14:40 | disposition home or self-care (01) | DRG 639 ==
LOC: ED 10:55 → SUATTDRO 15:06 → 2S 15:06